=== PATIENT | male | born 1975 | race Caucasian/White ===

== ENCOUNTER 2024-11-17 23:23 | Emergency (ER) | payer OTHER ==
[~2024-11-17] VITALS: Ht 172.7 cm; Wt 70.3 kg
[2024-11-18 00:10] LABS: BASOPHILS ABSOLUTE AUTO 0.02 K/mm3 (0.00-0.23); BASOPHILS PERCENT AUTO 0 % (0-2); EOSINOPHILS PERCENT AUTO 0 % (0-6); Hematocrit 40.7 % (37.0-53.0); Hemoglobin 14.6 g/dL (13.5-17.5); IMMATURE GRAN ABSOLUTE AUTO 0.01 K/mm3 (0.00-0.10); IMMATURE GRAN PERCENT AUTO 0 % (0-1); LYMPHOCYTES ABSOLUTE AUTO 1.37 K/mm3 (0.84-5.20); LYMPHOCYTES PERCENT AUTO 19 % (21-46); MONOCYTES ABSOLUTE AUTO 0.68 K/mm3 (0.16-1.47); MONOCYTES PERCENT AUTO 9 % (4-13); Mean Corpuscular HGB 33.3 pg (26.0-34.0); Mean Corpuscular HGB Conc 35.9 g/dL (31.5-36.5); Mean Corpuscular Volume 93 fL (80-100); Mean Platelet Volume 8.4 fL (9.1-12.4); NEUTROPHILS ABSOLUTE AUTO 5.25 K/mm3 (1.96-9.15); NEUTROPHILS PERCENT AUTO 72 % (41-73); Platelet Count 109 K/mm3 (150-400); RDW Coefficient Variation 12.7 % (11.7-14.2); RDW Standard Deviation 43.6 fL (35.1-46.3); Red Blood Cell Count 4.39 M/mm3 (4.30-5.90); White Blood Cell Count 7.33 K/mm3 (4.00-11.30)
[2024-11-18 00:25] LABS: Salicylate <1.7 mg/dL (2.8-20.0)
[2024-11-18 00:27] LABS: Acetaminophen, Random <2.0 ug/mL (10.0-30.0); Alanine Aminotransfer (ALT/SGP 35 U/L (12-78); Albumin, Blood 3.9 g/dL (3.4-5.0); Alk Phos 64 U/L (50-136); Anion Gap 14 mmol/L (3-11); Aspartate Aminotrans (AST/SGOT 47 U/L (12-37); Bilirubin, Total 0.7 mg/dL (0.1-1.0); Blood Urea Nitrogen 10 mg/dL (8-24); Bun/Creatinine Ratio 10.2 (12.0-20.0); CO2, Blood 25 mmol/L (21-32); Calcium, Blood 8.6 mg/dL (8.5-10.1); Chloride, Blood 99 mmol/L (98-108); Creatinine, Blood 0.98 mg/dL (0.60-1.20); Globulin, Blood 3.8 g/dL (2.2-4.0); Glomerular Filtration Rate 95 (60-); Glucose, Blood 101 mg/dL (70-99); Potassium, Blood 3.5 mmol/L (3.5-5.5); Sodium, Blood 134 mmol/L (136-145); Total Protein, Blood 7.7 g/dL (6.4-8.2)
[2024-11-18 00:40] LABS: Ethanol (Alcohol), Blood, Med 337 mg/dL
[2024-11-18] MEDS ORDERED: OMEP20ER PO (03:22)
[2024-11-18] MEDS ORDERED: BUPR150ER PO (03:23)
[2024-11-18] MEDS ORDERED: LISI20 PO (03:23)
[2024-11-18] MEDS ORDERED: CLOMIPRAMINE HC50 M1 PO (03:23)
[2024-11-18] MEDS ORDERED: PROP10 PO (03:24)
[2024-11-18] MEDS ORDERED: Naltrexone HCl50 MG PO (03:24)
[2024-11-18] MEDS ORDERED: HYDCHL12.5 PO (03:24)
[2024-11-18] MEDS ORDERED: ANASTROZOLE1 M7 PO (03:25)
[2024-11-18] MEDS ORDERED: ROSUVASTATIN CAL5 MG PO (03:25)
[2024-11-18] MEDS ORDERED: DESCOVY 200-251 EAC1 PO (03:25)
[2024-11-18] MEDS ORDERED: LORazepam 2 MG/ML 1ML Injection IV ONE ×2 (04:10→05:40)
[2024-11-18] MEDS ORDERED: Ondansetron HCl 2 MG / ML 2ML Vial IV ONE ×2 (04:25→12:15)
[2024-11-18] MEDS ORDERED: NS 1,000 ML IV SCH (05:55)
[2024-11-18] MEDS ORDERED: Lisinopril 20 MG Tab PO ONE (06:00)
[2024-11-18 07:58] LABS: Source, Urine Clean Catch
[2024-11-18 08:02] LABS: Appearance, Urine Clear (Clear); Bilirubin, Urine Neg (Neg); Blood, Urine Neg (Neg); Color, Urine Yellow (P-Yellow); Glucose Qualitative, Urine Neg (Neg); Ketones, Urine 2+ (Neg); Leukocyte Esterase, Urine Neg (Neg); Nitrite, Urine Neg (Neg); Protein, Urine 2+ (Neg); Specific Gravity, Urine 1.015 (1.003-1.022); Urobilinogen, Urine NORM (Normal)
[2024-11-18] MEDS ORDERED: ChlordiazePOXIDE 25 MG Cap PO ONE (08:25)
[2024-11-18] MEDS ORDERED: Acetaminophen 500 MG Tab PO ONE (08:25)
[2024-11-18 08:38] LABS: Bacteria Rare /hpf; Red Blood Cells, Urine 0-2 /hpf (0-2); Squamous Epithelial Cells Few /hpf (Few); White Blood Cells, Urine 0-2 /hpf (0-5)
[2024-11-18 08:43] LABS: U Amphetamine Screen Not Detected; U Barbituate Screen Not Detected; U Benzodiazapine Screen DETECTED; U Buprenorphine Screen Not Detected; U Cannabinoids Screen Not Detected; U Cocaine Screen Not Detected; U Methadone Screen Not Detected; U Methamphetamine Screen Not Detected; U Opiates Screen Not Detected; U Oxycodone Screen Not Detected; U Phencyclidine Screen Not Detected
[2024-11-18] MEDS ORDERED: PHENobarbitaL sodium 130 MG/ML VIAL IV ONE (12:00)
[2024-11-18] MEDS ORDERED: CHLO10 PO (12:22)
[2024-11-18] MEDS ORDERED: ONDA4ODT MM (12:22)
== END 2024-11-18 12:36 | disposition home or self-care (01) ==
LOC: ER 23:23
PROVIDERS: Student in an Organized Health Care Education/Training Program
DX: F10.239 Alcohol dependence with withdrawal, unspecified (principal); F10.229 Alcohol dependence with intoxication, unspecified; F31.9 Bipolar disorder, unspecified; Z88.1 Allergy status to other antibiotic agents
CPT/HCPCS: 80053; 80320; 81001; 85025; 93005; 93010; 96361; 96374; 96375; 96376; 99285-25; A9270; G0480; J2060; J2405; J2560; J7030